=== PATIENT | male | born 1975 ===

== ENCOUNTER 2021-12-14 13:53 | Emergency (ER) | payer MEDICAID ==
[~2021-12-14] VITALS: Ht 175.3 cm; Wt 102.3 kg
[2021-12-14] MEDS ORDERED: TRAM50TA4 PO (13:56)
[2021-12-14] MEDS ORDERED: KETOROLAC TROMETHAMINE 60 MG/2 ML VIAL IM ONE (15:00)
[2021-12-14] MEDS ORDERED: AMOX TR/POT CLAV 400/57.5 MG/5 ML SUSPENSION ORAL.SYG PO ONE (15:00)
[2021-12-14] MEDS ORDERED: HYDROCODONE/ACETAMINOPHEN 5-325 MG TABLET PO ONE (15:00)
[2021-12-14] MEDS ORDERED: LIDOCAINE 1% 10 ML VIAL SQ ONE (15:00)
[2021-12-14] MEDS ORDERED: HYDROGEN PEROXIDE 118 ML SOLUTION TP ONE (15:45)
[2021-12-14] MEDS ORDERED: ONDANSETRON HCL 4 MG/2 ML VIAL IM ONE (16:00)
[2021-12-14] MEDS ORDERED: HYDROmorphone 2 MG/ML VIAL IM ONE (16:00)
[2021-12-14 16:46] VITALS: BP 140/87
[2021-12-14] MEDS ORDERED: IBUP-1554 PO (17:09)
[2021-12-14] MEDS ORDERED: AMOX1TAB16 PO (17:09)
[2021-12-14] MEDS ORDERED: HYDR-4723 PO (17:09)
== END 2021-12-14 17:31 | disposition home or self-care (01) ==
LOC: EMS 13:56
DX: K04.7 Periapical abscess without sinus (principal); F17.210 Nicotine dependence, cigarettes, uncomplicated; Z98.890 Other specified postprocedural states
CPT/HCPCS: 99284; 96372; 41800; J1170; J1885; J2405; J3490